=== PATIENT | female | born 1950 | race Caucasian/White ===

== ENCOUNTER 2017-07-31 14:16 | Outpatient (CLI) | payer MEDICARE, OTHER ==
--- NOTE | 2017-07-31 15:17 | MRI ---
MRI LUMBAR SPINE NONCONTRAST: HISTORY: Low back pain. FINDINGS: The conus medullaris has a normal appearance. Vertebral body heights and AP alignment are maintained . Bone marrow signal is within normal limits. T12-L1, L1-2, L2-3: Mild osteophytosis is present. The central canal and neural foramen are patent. L3-4: A 1.1 cm oval fluid collection within the right side of the central canal projects anteriorly from the right facet and compresses the right side of the thecal sac and origin of the right L4 nerve root. There is desiccation of the disk at this level and mild posterior disk bulge. Fluid is assoc iated with each facet. L4-5: There is desiccation of the disk. Posterior disk bulge, along with facet joint hypertrophy an d ligamentous thickening, result in mild stenosis of the central canal and left neural foramen. L5-S1: There is mild osteophytosis. The central canal and neural foramen are patent. IMPRESSION: 1. Synovial cyst projecting anteriorly from the right L3-4 facet slightly compresses the thecal sac and right L4 nerve root origin. 2. Mild degenerative changes of the mid to lower lumbar spine as detailed above. POS: [facility]
== END 2017-07-31 14:17 | disposition home or self-care (01) ==
LOC: SCSMRI 14:16
PROVIDERS: ATTEND Specialist
DX: M47.816 Spondylosis without myelopathy or radiculopathy, lumbar region (principal); M71.38 Other bursal cyst, other site
CPT/HCPCS: 72148

== ENCOUNTER 2017-10-26 16:36 | Outpatient (CLI) | payer MEDICARE, OTHER | END 2017-10-26 16:37 | disposition home or self-care (01) | LOC: BICRAD 16:36 | PROVIDERS: ATTEND Nurse Practitioner Family | DX: M54.5 Low back pain (principal); M47.896 Other spondylosis, lumbar region; M41.86 Other forms of scoliosis, lumbar region | CPT/HCPCS: 72110 ==

== ENCOUNTER 2018-02-03 11:10 | Outpatient (CLI) | payer MEDICARE ==
--- NOTE | 2018-02-03 13:16 | MRI ---
MRI LUMBAR SPINE PERFORMED WITHOUT CONTRAST ENHANCEMENT: Date: 02/03/18 HISTORY: Right leg and left-sided back pain. COMPARISON: 07/31/17 MRI study. FINDINGS: The vertebral bodies are normal in height. There appears to be a minimal scoliotic change convex to t he left. Disc spaces all appear fairly well preserved. There are some disc desiccation changes noted. No significant periaortic adenopathy. The visualized portions of the kidneys appear unremarkable. T12-L1: Unremarkable. L1-2: Unremarkable. L2-3: Degenerative facet changes are seen at this level without significant canal or foraminal stenosis. l3-4: There are more prominent degenerative facet changes at this level. There is fluid within the facet yoel int. There is a small synovial cyst which projects from the right facet and extends to abut the right side of the thecal sac at this level. This synovial cyst is smaller than it was on the prior study. L4-5: Degenerative facet and ligamentous hypertrophic changes present at this level. Fluid within the left facet joint is seen. Canal shows some borderline narrowing. No significant foraminal stenosis seen. L5-S1: No significant canal or foraminal stenosis. Degenerative facet changes are present. IMPRESSION: 1. The synovial cyst arising from the right L3-4 facet is actually slightly smaller on today's study as compared to that prior examination, only minimally impressing on the thecal sac. 2. Borderline canal narrowing at L4-5 related to facet and ligamentous hypertrophic change. POS: [facility]
== END 2018-02-03 11:11 | disposition home or self-care (01) ==
LOC: MRI 11:10
PROVIDERS: ATTEND Specialist
DX: M51.16 Intervertebral disc disorders with radiculopathy, lumbar region (principal); M71.38 Other bursal cyst, other site
CPT/HCPCS: 72148

== ENCOUNTER 2018-03-16 14:56 | Outpatient (CLI) | payer MEDICARE ==
--- NOTE | 2018-03-16 15:35 | RAD ---
THREE VIEWS LUMBAR SPINE: 03/16/18 INDICATION: Spondylosis of the lumbar spine. FINDINGS: There are five lumbar type vertebrae. There is mild marginal osteophytes seen along the anterior aspe cts of the lumbar spine. Vertebral body heights are preserved. Spinal alignment is within normal limi ts. No abnormal translational motion is grossly evident. Vascular calcifications seen involving the a bdominal aorta. IMPRESSION: 1. Mild multilevel spondylosis of the lumbar spine. 2. No definite abnormal translational motion demonstrated. POS: [facility]
== END 2018-03-16 14:57 | disposition home or self-care (01) ==
LOC: RAD 14:56
PROVIDERS: ATTEND Family Medicine
DX: M47.816 Spondylosis without myelopathy or radiculopathy, lumbar region (principal)
CPT/HCPCS: 72100

== ENCOUNTER 2018-08-16 13:06 | Outpatient (CLI) | payer MEDICARE ==
--- NOTE | 2018-08-16 16:18 | MRI ---
MRI OF THE LUMBAR SPINE WITHOUT CONTRAST: COMPARISON: 02/03/2018. HISTORY: Intervertebral disk disorder, radiculopathy. The patient fell a week ago. Pain. COMPARISON: 02/03/2018. FINDINGS: There is appropriate T1 marrow signal intensity of the lumbar vertebrae. Intrinsic T1 and T2 hyperin tensity of L4 is unchanged and likely represents a small vertebral body hemangioma. No significant S TIR hyperintensity to suggest vertebral body edema or ligamentous injury. Appropriate signal intensity of the visualized solid organs and psoas muscles. Conus medullaris terminates at the superior aspect of L1. T12-L1: Adequate disk hydration. No significant central canal stenosis. Foramen are patent. L1-L2: Adequate disk hydration. No significant central canal stenosis. Neural foramen are patent. L2-L3: Mild loss of disk space height. Minimal generalized disk bulge. Minimal ligamentum flavum t hickening and facet hypertrophy. No significant central canal stenosis. Neural foramina are patent bilaterally. L3-L4: Desiccation with mild loss of disk space height. There is ligamentum flavum thickening and f acet hypertrophy. Fluid in both facet joints. There is a synovial cyst encroaching upon the right s ubarticular zone, measuring 0.6 cm. Synovial cyst abuts but does not obscure the traversing right L 4 nerve root. Overall, there is mild central canal stenosis. Mild right foraminal narrowing. The l eft neural foramen is patent. L4-L5: Adequate disk hydration. No significant loss of disk space height. There is a small disk in the left subarticular zone. Disk material abuts but does not obscure the traversing left L5 nerve r oot. There is ligamentum flavum thickening and facet hypertrophy. There is fluid in both facet join ts. Overall, there is no significant central canal stenosis. Mild bilateral foraminal narrowing. L5-S1: Adequate disk hydration. No significant central canal stenosis. Neural foramina are patent. IMPRESSION: Degenerative changes of the lumbar spine as above. When compared to the previous examination, the de gree of central canal stenosis and foraminal narrowing has not significantly changed. The synovial c yst noted in the L3-L4 level, adjacent to the right facet joint, is essentially stable. POS: [facility]
== END 2018-08-16 13:07 | disposition home or self-care (01) ==
LOC: BICMRI 13:06
PROVIDERS: ATTEND Specialist
DX: M51.16 Intervertebral disc disorders with radiculopathy, lumbar region (principal); M48.061 Spinal stenosis, lumbar region without neurogenic claudication; M47.26 Other spondylosis with radiculopathy, lumbar region; M71.30 Other bursal cyst, unspecified site
CPT/HCPCS: 72148

== ENCOUNTER 2018-09-16 12:49 | Outpatient (CLI) | payer MEDICARE ==
[~2018-09-16 12:49] MED LIST: Gadobenate Dimeglumine 529 MG/1 ML (20ML VIAL) ONE
--- NOTE | 2018-09-16 15:48 | MRI ---
MRI PELVIS WITH AND WITHOUT CONTRAST: Date: 09/16/18 HISTORY: R10.2, pelvic pain. Burning in groin. COMPARISON: None. FINDINGS: On the T1 imaging sequence with no abnormal areas of T1 signal replacement. There is mild narrowing o f the pubic symphysis with sclerosis and osteophyte formation. There is no extrinsic mass effect upon the pudendal nerve. No extrinsic mass effect upon the exiting sacral nerves. The sciatic nerve is normal. The levator ani muscle, as well as the piriformis muscles are symmetric. SI joints are normal. No quadratus femoris impingement. Hamstring tendons are intact. The iliopsoas tendons are intact. No evidence for obturator entrapment. Intrapelvic soft tissues are normal. IMPRESSION: 1. No evidence of pudendal nerve entrapment. 2. No evidence of obturator nerve entrapment. 3. Normal sciatic nerves bilaterally. 4. Moderate diverticular disease of the sigmoid colon without active current inflammation. POS: [facility]
== END 2018-09-16 12:50 | disposition home or self-care (01) ==
LOC: BICMRI 12:49
PROVIDERS: ATTEND Specialist
DX: R10.2 Pelvic and perineal pain (principal); K57.30 Diverticulosis of large intestine without perforation or abscess without bleeding
CPT/HCPCS: 72197; 82565; A9577

== ENCOUNTER 2020-05-04 13:21 | Outpatient (CLI) | payer MEDICARE ==
--- NOTE | 2020-05-04 14:01 | RAD ---
XR Lumbar Spine Min 4 View: 05/04/2020 1:32 PM INDICATION: Intervertebral disc disorder with radiculopathy COMPARISON: Prior examination dated March 16, 2018 and October 26, 2017 FINDINGS: Fracture: None. Alignment: There is stable levoscoliosis centered at L3. No abnormal translational motion. Degenerative Change: There is worsening disc degenerative disease seen at L2-3 and L3-4 since the co mparison exam. There is stable mild to moderate facet osteoarthritic change at L3-4 and L4-5. Bone Mineralization:There is diffuse osteopenia Soft tissues: There are mild vascular calcifications seen involving the visualized vasculature. IMPRESSION: Worsening disc degenerative disease at L2-3 and L3-4. The mild disc degenerative disease at L4-5 and L5-S1 appears stable. No abnormal translational motion is identified. No acute fracture or subluxation is evident. Stable levoscoliosis of the lumbar spine.
--- NOTE | 2020-05-04 15:43 | MRI ---
MRI OF THE LUMBAR SPINE WITHOUT CONTRAST: 05/04/20 COMPARISON: None. HISTORY: Intervertebral disc disorder with radiculopathy, low back pain. TECHNIQUE: Multiplanar and multisequence MR imaging of the lumbar spine provided without contrast. FINDINGS: The sagittal STIR imaging demonstrates degenerative edematous end plate change at the L2-3 level. On the basis of five lumbar type vertebral bodies, conus medullaris terminates at the L1 level. T12-L1: Mild bilateral facet hypertrophy with no significant central canal or neural foraminal stenos is. L1-2: Mild bilateral facet hypertrophy with no significant central canal or neural foraminal stenosis . L2-3: There is disc space narrowing with disc desiccation and mild disc bulge. No significant central canal stenosis. Mild bilateral facet hypertrophy with no significant neural foraminal stenosis on ei ther side. L3-4: There is bilateral facet hypertrophy and hypertrophy of the ligamentum flavum with fluid within bilateral facet joints. No significant central canal or neural foraminal stenosis. Mild disc bulge. L4-5: There is disc space narrowing with disc desiccation and mild disc bulge. Bilateral facet hypert rophy and hypertrophy of the ligamentum flavum with fluid within bilateral facet joints. No significa nt central canal or neural foraminal stenosis. L5-S1: Mild disc space narrowing with disc desiccation. Mild bilateral facet hypertrophy. No signific ant central canal or neural foraminal stenosis. Imaged retroperitoneal structures appear grossly unremarkable. IMPRESSION: Lumbar spine degenerative change, primarily involving the lower lumbar spine facet joints. Some of th e lumbar spine facet joints demonstrate internal fluid which may signify instability. This could be b luda assessed with lateral flexion and extension imaging. No significant central canal or neural for aminal stenosis. POS: [facility]
== END 2020-05-04 13:22 | disposition home or self-care (01) ==
LOC: BICMRI 13:21
PROVIDERS: ATTEND Nurse Practitioner Family
DX: M51.16 Intervertebral disc disorders with radiculopathy, lumbar region (principal); M51.37 Other intervertebral disc degeneration, lumbosacral region; M47.26 Other spondylosis with radiculopathy, lumbar region; M41.9 Scoliosis, unspecified
CPT/HCPCS: 72110; 72148

== ENCOUNTER 2022-09-01 20:06 | Emergency (ER) | payer MEDICARE ==
[2022-09-02] MEDS ORDERED: Meclizine HCl 25 MG TAB ONE (01:42)
[2022-09-02] MEDS ORDERED: Ondansetron PF 4 MG/2 ML Vial ONE (01:42)
[2022-09-02] MEDS ORDERED: Diazepam 5 MG TAB ONE (01:43)
== END 2022-09-02 03:19 | disposition home or self-care (01) ==
LOC: ERS 20:06
DX: R42 Dizziness and giddiness (principal)
CPT/HCPCS: 96361; 96374; J2405

== ENCOUNTER 2023-06-17 12:25 | Outpatient (CLI) | payer MEDICARE | END 2023-06-17 12:26 | disposition home or self-care (01) | LOC: MRI 12:25 | PROVIDERS: ATTEND Nurse Practitioner Family | DX: M51.16 Intervertebral disc disorders with radiculopathy, lumbar region (principal); M50.121 Cervical disc disorder at C4-C5 level with radiculopathy; M47.817 Spondylosis without myelopathy or radiculopathy, lumbosacral region; M47.26 Other spondylosis with radiculopathy, lumbar region; M47.815 Spondylosis without myelopathy or radiculopathy, thoracolumbar region; M43.8X4 Other specified deforming dorsopathies, thoracic region; M43.13 Spondylolisthesis, cervicothoracic region; M48.02 Spinal stenosis, cervical region; E27.8 Other specified disorders of adrenal gland; Z98.1 Arthrodesis status | CPT/HCPCS: 72141; 72148 ==

== ENCOUNTER 2023-06-24 13:41 | Outpatient (CLI) | payer MEDICARE ==
[~2023-06-24 13:41] MED LIST changes: -Gadobenate Dimeglumine 529 MG/1 ML (20ML VIAL) ONE; +Iopamidol 370 76% 100 ML VIAL ONE
== END 2023-06-24 13:42 | disposition home or self-care (01) ==
LOC: CT 13:41
PROVIDERS: ATTEND Nurse Practitioner Family
DX: E27.8 Other specified disorders of adrenal gland (principal); K59.00 Constipation, unspecified; K76.89 Other specified diseases of liver; R91.1 Solitary pulmonary nodule; I70.90 Unspecified atherosclerosis
CPT/HCPCS: 74160; 82565; Q9967